=== PATIENT | male | born 1960 | race Caucasian/White ===

== ENCOUNTER 2018-05-22 23:09 | Emergency (ER) | payer MEDICARE ==
[2018-05-22] MEDS ORDERED: KETOROLAC TROMETHAMINE INJ/PF 30 MG/1 ML SDV IV ONE (23:47)
[2018-05-22] MEDS ORDERED: ONDANSETRON HCL INJ/PF 4 MG/2 ML SDV IV ONE (23:47)
[2018-05-22] MEDS ORDERED: MORPHINE SULFATE 10 MG/ML INJ IV ONE (23:48)
[2018-05-22 23:53] LABS: ABSOLUTE EOSINOPHILS # (AUTO) 0.5 10^3/uL (0.0-0.6); ABSOLUTE LYMPHOCYTES (AUTO) 1.7 10^3/uL (0.5-4.7); ABSOLUTE MONOCYTES (AUTO) 0.8 10^3/uL (0.1-1.4); ABSOLUTE NEUT (AUTO) 7.4 10^3/uL (1.7-8.2); BASOPHILS % (AUTO) 0.3 % (0-2); EOSINOPHILS % (AUTO) 4.4 % (0-6); HEMATOCRIT 40.5 % (37.9-51.0); HEMOGLOBIN 13.7 g/dL (13.5-17.0); LYMPHOCYTES % (AUTO) 16.1 % (13-45); MEAN CORPUSCULAR HEMOGLOBIN 30.8 pg (27.0-33.4); MEAN CORPUSCULAR HGB CONC 33.7 g/dL (32.0-36.0); MEAN CORPUSCULAR VOLUME 91 fl (80-97); MONOCYTES % (AUTO) 7.8 % (3-13); PLATELET COUNT 199 10^3/uL (150-450); RED BLOOD COUNT 4.43 10^6/uL (4.35-5.55); RED CELL DISTRIBUTION WIDTH 13.7 % (11.5-14.0); SEGMENTED NEUTROPHILS % (AUTO) 71.4 % (42-78); TOTAL CELLS COUNTED % (AUTO) 100 %; WHITE BLOOD COUNT 10.3 10^3/uL (4.0-10.5)
[2018-05-23 00:01] LABS: ALANINE AMINOTRANSFERASE 47 U/L (21-72); ALBUMIN 3.6 g/dL (3.5-5.0); ALKALINE PHOSPHATASE 132 U/L (38-126); ANION GAP 9 (5-19); ASPARTATE AMINO TRANSFERASE 31 U/L (17-59); BILIRUBIN,DIRECT 0.2 mg/dL (0.0-0.4); BILIRUBIN,TOTAL 0.5 mg/dL (0.2-1.3); BLOOD UREA NITROGEN 19 mg/dL (7-20); CALCIUM 10.1 mg/dL (8.4-10.2); CARBON DIOXIDE 27 mmol/L (22-30); CHLORIDE 104 mmol/L (98-107); GLUCOSE 127 mg/dL (75-110); POTASSIUM 4.4 mmol/L (3.6-5.0); SODIUM 140.1 mmol/L (137-145); TOTAL PROTEIN 6.6 g/dL (6.3-8.2)
--- NOTE | 2018-05-23 00:37 | ER Document Report ---
ED GI/ - General Mode of Arrival: Ambulatory Information source: Patient <DUANE CARNES - Last Filed: 05/23/18 03:27> <SAMMIE BOURGEOIS - Last Filed: 05/23/18 03:34> - General Chief Complaint: Flank Pain Stated Complaint: FLANK PAIN Time Seen by Provider: 05/22/18 23:39 Notes: Patient is a 58 year old male with HTN, high cholesterol and borderline diabetes and a history of kidney stones and skin cancer presents to the emergency department complaining of right flank pain onset 2 days ago. Patient states the pain was worsening and constant. He states he took Hydrocodone around 1999 with no relief. He further states the pain is similar to his previous kidney stones. Patient also complains of hematuria and nose congestion. Patient denies vomiting, diarrhea or chest pain. (TRICE,TAMPRIYA) - Related Data Allergies/Adverse Reactions: No Known Allergies Allergy (Unverified 06/09/14 19:47) Past Medical History - General Information source: Patient - Social History Smoking Status: Unknown if Ever Smoked Family History: Reviewed & Not Pertinent Patient has suicidal ideation: No Patient has homicidal ideation: No - Past Medical History Cardiac Medical History: Reports: Hx Hypertension Endocrine Medical History: Reports: Other - Borderline diabetes Renal/ Medical History: Reports: Hx Kidney Stones Malignancy Medical History: Reports Hx Skin Cancer - States it has been removed. Musculoskeletal Medical History: Reports Hx Gout Psychiatric Medical History: Reports: Hx Depression Past Surgical History: Reports: Hx Genitourinary Surgery - lithrotripsy, Hx Kidney (Renal Surgery), Hx Urinary Tract Surgery - CYSTO-LASER TX FOR KIDNEY STONES - Immunizations Hx Diphtheria, Pertussis, Tetanus Vaccination: Yes <TRICESHEYPRIYA - Last Filed: 05/23/18 03:27> Review of Systems - Review of Systems Constitutional: No symptoms reported EENT: No symptoms reported Cardiovascular: No symptoms reported Respiratory: No symptoms reported Gastrointestinal: No symptoms reported Genitourinary: See HPI, Flank pain, Hematuria Male Genitourinary: No symptoms reported Musculoskeletal: No symptoms reported Skin: No symptoms reported Hematologic/Lymphatic: No symptoms reported Neurological/Psychological: No symptoms reported -: Yes All other systems reviewed and negative <DUANE CARNES - Last Filed: 05/23/18 03:27> Physical Exam - General General appearance: Appears well, Alert In distress: None - HEENT Head: Normocephalic, Atraumatic Eyes: Normal Conjunctiva: Normal Extraocular movements intact: Yes Pupils: PERRL Mucous membranes: Normal Neck: Normal - Respiratory Respiratory status: No respiratory distress Chest status: Nontender Breath sounds: Normal Chest palpation: Normal - Cardiovascular Rhythm: Regular Heart sounds: Normal auscultation Murmur: No Friction rub: No Gallop: None auscultated - Abdominal Inspection: Normal Distension: No distension Bowel sounds: Normal Tenderness: Tender - Right pelvic tenderness to palpation Organomegaly: No organomegaly - Back Back: CVA tenderness - Mild right > left tenderness to percussion - Extremities General upper extremity: Normal ROM General lower extremity: Normal ROM - Neurological Neuro grossly intact: Yes Cognition: Normal Orientation: AAOx4 Hodges Coma Scale Eye Opening: Spontaneous Hodges Coma Scale Verbal: Oriented Hodges Coma Scale Motor: Obeys Commands Hodges Coma Scale Total: 15 Speech: Normal - Psychological Associated symptoms: Normal affect, Normal mood - Skin Skin Temperature: Warm Skin Moisture: Dry Skin Color: Normal <DUANE CARNES - Last Filed: 05/23/18 03:27> - Vital signs Vitals: Temp 97.3 F 05/22/18 23:09 Course - Laboratory Result Diagrams: 05/22/18 23:40 05/22/18 23:40 - Consults Dr. Berumen Time consulted: 01:09 - Agreeable to transfer, states to call hospitalist. <DUANE CARNES - Last Filed: 05/23/18 03:27> - Laboratory Result Diagrams: 05/22/18 23:40 05/22/18 23:40 <SAMMIE BOURGEOIS - Last Filed: 05/23/18 03:34> - Re-evaluation Re-evalutation: 05/23/18 01:00 CT scan shows bilateral obstructive kidney stones within mid ureter with moderate to severe hydroureter and hydronephrosis. Contacted [facility] transfer ramah. 05/23/18 01:09 Nurse recorded a temperature of 97. Dr. Zafar Berumen, urologist at [facility], is agreeable to transfer and states to call Hospitalist to admit to medicine. Hospitalist disagrees with admission to their floor and believes it should be a urologist admission. States they are going to call urologist. 05/23/18 02:14 Dr. Berumen admits patient to his service. (DUANE CARNES) 05/23/18 03:50 Patient is a 58-year-old male who presents with flank pain. CT is showing bilateral ureteral stones with bilateral hydronephrosis. There is also some perinephric stranding on the left concerning for possible Raji. Patient does have WBCs in urine. Blood cultures and urine cultures are sent. Rocephin was given. [facility] was contacted to transfer patient for urology services as none are available at this hospital today. Spoke with Dr. Berumen who will accept patient in transfer. Patient is agreeable to this plan and grateful for care. He is stable at the time of transfer. Of note, BUN and creatinine within normal limits at this time. (SAMMIE BOURGEOIS) - Vital Signs Vital signs: Temp Pulse Resp BP Pulse Ox 97.5 F 55 L 179/86 H 98 05/23/18 00:57 05/22/18 23:21 05/22/18 23:21 05/22/18 23:21 - Laboratory Laboratory results interpreted by me: 05/22/18 05/23/18 23:40 00:30 Glucose 127 H Alkaline Phosphatase 132 H Urine Protein 100 H Urine Glucose (UA) 50 H Urine Blood LARGE H Ur Leukocyte Esterase SMALL H Critical Care Note - Critical Care Note Total time excluding time spent on procedures (mins): 45 - Evaluation and management of flank pain, concern for obstructive uropathy, consultation with specialist, coordination of transfer, counseling of patient and family <SAMMIE BOURGEOIS - Last Filed: 05/23/18 03:34> Discharge <DUANE CARNES - Last Filed: 05/23/18 03:27> <SAMMIE BOURGEOIS - Last Filed: 05/23/18 03:34> - Discharge Clinical Impression: Bilateral ureteral calculi, Bilateral hydronephrosis, Possible pyelonephritis Condition: Stable Disposition: [facility] Scribe Attestation: 05/23/18 03:50 I personally performed the services described in the documentation, reviewed and edited the documentation which was dictated to the scribe in my presence, and it accurately records my words and actions. (SAMMIE BOURGEOIS) Scribe Documentation - Scribe Written by Zoë:: Zoë Barroso, 05/23/2018 00:43 acting as scribe for :: Julien <DUANE CARNES - Last Filed: 05/23/18 03:27>
--- NOTE | 2018-05-23 00:53 | RADIOLOGY REPORT (SQ) ---
EXAM DESCRIPTION: CT ABDOMEN WITHOUT IV CONTRAST COMPLETED DATE/TME: 05/23/2018 00:00 CLINICAL HISTORY: 58 years, Male, R flank pain, nausea COMPARISON: None. TECHNIQUE: Axial CT images of the abdomen and pelvis were obtained without contrast. Sagittal and coronal reformats were performed. [facility] 808 Images stored on PACS. All CT scanners at this facility use dose modulation, iterative reconstruction, and/or weight based dosing when appropriate to reduce radiation dose to as low as reasonably achievable (ALARA). [facility]: Dose Right [facility]: CareDose [facility]: Dose Right [facility]: Teradose 4D [facility]: [employer] LIMITATIONS: None. FINDINGS: The lung bases are clear. The liver, gallbladder, pancreas, spleen, and adrenal glands are unremarkable. There is a 0.5 x 0.4 cm stone within the mid right ureter causing moderate to severe hydroureter and hydronephrosis. There is is an additional 3 mm stone within the midpole of the right kidney. There is a 1.5 cm cyst within the right kidney. There is mild stranding along the right kidney and right ureter. There is a 0.7 x 0.9 cm stone within the mid left ureter. There are additional stones proximal to this stone which measure up to 0.7 cm in size. There is moderate to severe left-sided hydroureter and hydronephrosis. There is a 2.7 cm cyst within the left kidney. There are six stones within the urinary bladder with the largest stone measuring 2.2 x 2.1 cm. The smallest stone measures 1.2 x 1.0 cm. There is no intraperitoneal free air or fluid. There is no lymphadenopathy. There are are atherosclerotic calcifications of the abdominal aorta. The stomach, small bowel, and appendix are unremarkable. Diverticulosis is noted without evidence of diverticulitis. The prostate gland measures 6.6 x 5.8 cm. There are no lytic or blastic bone lesions IMPRESSION: 0.5 x 0.4 cm stone within the mid right ureter causing moderate to severe hydroureter and hydronephrosis. Additional 3 mm stone within the midpole the right kidney. Mild stranding around the right kidney and right ureter. A superimposed infection may be present. 0.7 x 0.9 cm stone within the mid left ureter with additional stones proximal that measure up to 0.7 cm. Moderate to severe left-sided hydroureter and hydronephrosis. Multiple stones within the urinary bladder which measure up to 2.2 x 2.1 cm. TECHNICAL DOCUMENTATION: Quality ID # [id number]: Final reports with documentation of one or more dose reduction techniques (e.g., Automated exposure control, adjustment of the mA and/or kV according to patient size, use of iterative reconstruction technique) 2010 [employer]- All Rights Reserved
[2018-05-23 00:54] LABS: APPEARANCE,URINE SLIGHTLY-CLOUDY; BILIRUBIN,URINE NEGATIVE (NEGATIVE); COLOR,URINE YELLOW; GLUCOSE, URINE 50 mg/dL (NEGATIVE); KETONES,URINE NEGATIVE (NEGATIVE); LEUKOCYTE ESTERASE,URINE SMALL (NEGATIVE); NITRITE,URINE NEGATIVE (NEGATIVE); PROTEIN,URINE 100 mg/dL (NEGATIVE); URINE SPECIFIC GRAVITY 1.015; UROBILINOGEN,URINE NEGATIVE mg/dL (<2.0)
[2018-05-23] MEDS ORDERED: CEFTRIAXONE 1 GM/D5W RTU 1 GM/50 ML RTUPB IV ONE (00:59)
[2018-05-23] MEDS ORDERED: CEFTRIAXONE INJ 1000 MG VIAL ONE (01:23)
[2018-05-23] MEDS ORDERED: MORPHINE SULFATE 10 MG/ML INJ IV ONE (02:59)
[2018-05-23 03:51] VITALS: BP 147/85
== END 2018-05-23 04:10 | disposition short-term general hospital (02) ==
LOC: ER 23:09
DX: N13.2 Hydronephrosis with renal and ureteral calculous obstruction (principal); R10.9 Unspecified abdominal pain; R31.9 Hematuria, unspecified; I10 Essential (primary) hypertension; E78.00 Pure hypercholesterolemia, unspecified; Z87.442 Personal history of urinary calculi
CPT/HCPCS: 96376; 99291; 96374; 96375; 36415; 87040; 87086; 85025; 87077; 80053; 81001; 76380; J1885; J2270; J0696; J2405

== ENCOUNTER 2018-08-06 19:02 | Emergency (ER) | payer MEDICARE ==
[2018-08-06] MEDS ORDERED: HYDROMORPHONE HCL INJ/PF 2 MG/ML AMPULE IV ONE (20:00)
[2018-08-06] MEDS ORDERED: ONDANSETRON HCL INJ/PF 4 MG/2 ML SDV IV ONE (20:00)
--- NOTE | 2018-08-06 20:23 | ER Document Report ---
ED Medical Screen (RME) - General Chief Complaint: Possible Kidney Stone Stated Complaint: FLANK PAIN Time Seen by Provider: 08/06/18 19:58 Mode of Arrival: Ambulatory Information source: Patient Notes: 58-year-old male presents with complaint of flank pain for 4 months. Patient was seen here and transferred to [facility] where he underwent a lithotripsy, stent placement. Patient reporting worsening of pain. He was seen at [facility] and discharged home. Daughter reports a decline in function, appetite. I have greeted and performed a rapid initial assessment of this patient. A comprehensive ED assessment and evaluation of the patient, analysis of test results and completion of medical decision making process we will be contacted by additional ED providers. PHYSICAL EXAMINATION: Vital signs reviewed-within normal limits GENERAL: Ill-appearing, mild distress LUNGS: No respiratory distress Musculoskeletal: Normal range of motion NEUROLOGICAL: Normal speech, normal gait. PSYCH: Normal mood, normal affect. SKIN: Warm, Dry, normal turgor, no rashes or lesions noted. TRAVEL OUTSIDE OF THE [place] IN LAST 30 DAYS: No - HPI Onset: Other Onset/Duration: Worse Quality of pain: Stabbing Associated Symptoms: Nausea Exacerbated by: Movement Relieved by: Denies Similar symptoms previously: Yes Recently seen / treated by doctor: Yes - Related Data Smoking: Non-smoker Frequency of alcohol use: None Drug Abuse: None Allergies/Adverse Reactions: No Known Allergies Allergy (Unverified 06/09/14 19:47) Past Medical History - Past Medical History Cardiac Medical History: Reports: Hx Hypertension Renal/ Medical History: Reports: Hx Kidney Stones. Denies: Hx Peritoneal Dialysis Malignancy Medical History: Reports Hx Skin Cancer - States it has been removed. Musculoskeltal Medical History: Reports Hx Gout Psychiatric Medical History: Reports: Hx Depression Past Surgical History: Reports: Hx Genitourinary Surgery - lithrotripsy, Hx Kidney (Renal Surgery), Hx Urinary Tract Surgery - CYSTO-LASER TX FOR KIDNEY STONES - Immunizations Hx Diphtheria, Pertussis, Tetanus Vaccination: Yes Physical Exam - Vital signs Vitals: Temp Pulse Resp BP Pulse Ox 98.1 F 77 20 120/79 99 08/06/18 19:28 08/06/18 19:28 08/06/18 19:28 08/06/18 19:28 08/06/18 19:28 Course - Vital Signs Vital signs: Temp Pulse Resp BP Pulse Ox 98.1 F 77 20 120/79 99 08/06/18 19:28 08/06/18 19:28 08/06/18 19:28 08/06/18 19:28 08/06/18 19:28
[2018-08-06 21:20] LABS: HEMATOCRIT 38.8 % (37.9-51.0); HEMOGLOBIN 12.9 g/dL (13.5-17.0); MEAN CORPUSCULAR HEMOGLOBIN 29.3 pg (27.0-33.4); MEAN CORPUSCULAR HGB CONC 33.4 g/dL (32.0-36.0); MEAN CORPUSCULAR VOLUME 88 fl (80-97); PLATELET COUNT 341 10^3/uL (150-450); RED BLOOD COUNT 4.41 10^6/uL (4.35-5.55); RED CELL DISTRIBUTION WIDTH 16.3 % (11.5-14.0)
[2018-08-06 21:33] LABS: ALANINE AMINOTRANSFERASE 33 U/L (21-72); ALKALINE PHOSPHATASE 151 U/L (38-126); ANION GAP 19 (5-19); ASPARTATE AMINO TRANSFERASE 40 U/L (17-59); BILIRUBIN,DIRECT 1.8 mg/dL (0.0-0.4); CALCIUM 10.4 mg/dL (8.4-10.2); CARBON DIOXIDE 18 mmol/L (22-30); CHLORIDE 95 mmol/L (98-107); GLUCOSE 198 mg/dL (75-110); POTASSIUM 4.8 mmol/L (3.6-5.0); SODIUM 131.9 mmol/L (137-145); TOTAL PROTEIN 7.7 g/dL (6.3-8.2)
[2018-08-06 21:36] LABS: ABSOLUTE LYMPHOCYTES# (MANUAL) 0.8 10^3/uL (0.5-4.7); ABSOLUTE MONOCYTES # (MANUAL) 1.3 10^3/uL (0.1-1.4); ABSOLUTE NEUTROPHILS# (MANUAL) 23.9 10^3/uL (1.7-8.2); BAND NEUTROPHILS % (MANUAL) 1 % (3-5); BASOPHILS % (MANUAL) 0 % (0-2); EOSINOPHILS % (MANUAL) 0 % (0-6); LYMPHOCYTES % (MANUAL) 3 % (13-45); MONOCYTES % (MANUAL) 5 % (3-13); SEGMENTED NEUTROPHILS % (MAN) 91 % (42-78); TOTAL CELLS COUNTED 100
[2018-08-06 21:39] LABS: ANISOCYTOSIS 1+; PLATELET COMMENT ADEQUATE; PLATELET LARGE PRESENT; TOXIC GRANULATION SLIGHT; TOXIC VACUOLATION PRESENT
[2018-08-06 21:40] LABS: BLOOD UREA NITROGEN 188 mg/dL (7-20)
[2018-08-06 21:44] LABS: APPEARANCE,URINE TURBID; BILIRUBIN,URINE NEGATIVE (NEGATIVE); COLOR,URINE AMBER; GLUCOSE, URINE NEGATIVE (NEGATIVE); KETONES,URINE NEGATIVE (NEGATIVE); LEUKOCYTE ESTERASE,URINE LARGE (NEGATIVE); NITRITE,URINE NEGATIVE (NEGATIVE); PROTEIN,URINE 100 mg/dL (NEGATIVE); URINE SPECIFIC GRAVITY 1.012; UROBILINOGEN,URINE NEGATIVE mg/dL (<2.0)
[2018-08-06] MEDS ORDERED: CEFTRIAXONE INJ 1000 MG VIAL IV ONE (21:50)
[2018-08-06] MEDS ORDERED: NORMAL SALINE 1000 ML 1,000 ML IV ONE (21:50)
--- NOTE | 2018-08-06 22:03 | ER Document Report ---
ED GI/ <JS KINNEY - Last Filed: 08/07/18 12:22> <GEMMAORQUIDEALOIDA - Last Filed: 08/08/18 18:29> - General Mode of Arrival: Ambulatory TRAVEL OUTSIDE OF THE [place] IN LAST 30 DAYS: No <CHIARA MAE - Last Filed: 08/08/18 20:24> - General Chief Complaint: Possible Kidney Stone Stated Complaint: FLANK PAIN Time Seen by Provider: 08/06/18 19:58 Notes: Patient is a 58-year-old male that comes to the emergency department for chief complaint of vomiting, inability to eat, abdominal pain, flank pain. Patient diagnosed with multiple kidney stones, states that he had laser removal of the kidney stones on one side, was due for laser removal of the other kidney stones on the other side on August 21 with [facility]. Daughter states that for the past 4-5 days patient has been progressively worse, he was evaluated yesterday at [facility] after he was running a fever per family, he was given a dose of IM antibiotics, placed on Ceftin ear and sent home with Zofran and oxycodone. Patient states that despite nausea and pain medication every time he tries to eat or drink he vomits. In addition to this patient had a Torres catheter removed 4 days ago, he states he can urinate since that time although he admits he can only urinate minimally. Patient also states that he has become so weak over the past day that he can barely walk. (HCIARA MAE) - Related Data Allergies/Adverse Reactions: No Known Allergies Allergy (Unverified 06/09/14 19:47) Past Medical History - General Information source: Patient - Social History Smoking Status: Never Smoker Frequency of alcohol use: None Drug Abuse: None Lives with: Family Family History: Reviewed & Not Pertinent Patient has suicidal ideation: No Patient has homicidal ideation: No - Past Medical History Cardiac Medical History: Reports: Hx Hypertension Renal/ Medical History: Reports: Hx Kidney Stones. Denies: Hx Peritoneal Dialysis Malignancy Medical History: Reports Hx Skin Cancer - States it has been removed. Musculoskeletal Medical History: Reports Hx Gout Psychiatric Medical History: Reports: Hx Depression Past Surgical History: Reports: Hx Genitourinary Surgery - lithrotripsy, Hx Kidney (Renal Surgery), Hx Urinary Tract Surgery - CYSTO-LASER TX FOR KIDNEY STONES - Immunizations Hx Diphtheria, Pertussis, Tetanus Vaccination: Yes <CHIARA MAE - Last Filed: 08/08/18 20:24> Review of Systems - Review of Systems Constitutional: See HPI EENT: No symptoms reported Cardiovascular: No symptoms reported Respiratory: No symptoms reported Gastrointestinal: See HPI Genitourinary: See HPI Male Genitourinary: No symptoms reported Musculoskeletal: No symptoms reported Skin: No symptoms reported Hematologic/Lymphatic: No symptoms reported Neurological/Psychological: No symptoms reported <CHIARA MAE - Last Filed: 08/08/18 20:24> Physical Exam <JS KINNEY - Last Filed: 08/07/18 12:22> <LOIDA LEARY - Last Filed: 08/08/18 18:29> <CHIARA MAE - Last Filed: 08/08/18 20:24> - Vital signs Vitals: Temp Pulse Resp BP Pulse Ox 98.1 F 77 20 120/79 99 08/06/18 19:28 08/06/18 19:28 08/06/18 19:28 08/06/18 19:28 08/06/18 19:28 - Notes Notes: GENERAL: Patient ill-appearing, appears to be in pain, lying grimacing on the bed with his eyes shut HEAD: Normocephalic, atraumatic. EYES: Pupils equal, round, and reactive to light. Extraocular movements intact. ENT: Oral mucosa very dry, tongue midline, unremarkable oropharyngeal exam NECK: Full range of motion. Supple. Trachea midline. LUNGS: Clear to auscultation bilaterally, no wheezes, rales, or rhonchi. No respiratory distress. HEART: Regular rate and rhythm. No murmur ABDOMEN: Very tender in the mid to lower abdomen, some distention, no rigidity. There is also tenderness in the upper abdomen generally. EXTREMITIES: Moves all 4 extremities spontaneously. No edema, normal radial and dorsalis pedis pulses bilaterally. No cyanosis. BACK: Mild bilateral CVA tenderness, otherwise unremarkable back exam NEUROLOGICAL: Alert and oriented x3. Normal speech. [cranial nerves II through XII grossly intact]. SKIN: Warm, dry, normal turgor. No rashes or lesions noted. (CHIARA MAE) Course - Laboratory Result Diagrams: 08/07/18 06:50 08/07/18 06:50 <JS KINNEY - Last Filed: 08/07/18 12:22> - Laboratory Result Diagrams: 08/08/18 08:25 08/08/18 08:25 <GEMMAORQUIDEALOIDA - Last Filed: 08/08/18 18:29> - Laboratory Result Diagrams: 08/08/18 08:25 08/08/18 08:25 <CHIARA MAE - Last Filed: 08/08/18 20:24> - Re-evaluation Re-evalutation: 08/07/18 12:22 Patient complaining of discomfort around the insertion site of his Torres catheter, viscous lidocaine will be ordered and applied. Patient denies any other complaints. Continue to await bed assignment. (JS KINNEY) 08/08/18 07:12 Assumed care of the patient at the bedside. He is feeling better. He is drinking some Gatorade. Urine culture is pending. Urinary catheter is draining. I ordered another CBC, comprehensive chemistry, and lipase to recheck his labs. [facility] transfer center said to call back at 9 AM and they will no better for bed placement. 08/08/18 09:06 [facility] does not know when any beds will be available. Pt drinking gatorade. vitals stable. 08/08/18 09:06 08/08/18 09:10 pt wants me to call his son barbie curtis [phone] about possible transfer to a different hospital, his urologist is at [facility]. Then call [facility] , he wants them to make decision about where he is transferred to. I am trying to find out other arrangements because [facility] does not know when they will have a bed available. 08/08/18 09:[address] mcqueen as supervisory for this pt pending transfer, wants protable cxr, reviewed labs, change IV fluid to 1/2 NS at 150/hr, will increase if chest xray OK> will call [facility] back. 08/08/18 09:23 08/08/18 10:03 The patient and his son Mahamed said to try [facility] for transfer. They are not accepting except for STEMI's, subarachnoid bleeds, NICU and high risk pregnancies. The patient and son Mahamed then said to try [facility] again. 08/08/18 10:34 call to [facility] had to leave transfer line message. cxr negative. 08/08/18 11:30 spoke with nursing building services supervisor at [facility] and the senior program analyst will call me back. 08/08/18 14:55 dr. sexton at [facility] Hospitalist will accept the pt the the IMCU at [facility], urology is already aware of the pt, as dr. GARCIA that I spoke with an hour ago (senior program analyst) said that he does not need ICU> 08/08/18 14:57 08/08/18 18:29 pt feels OK, vitals stable, will be going to [facility] via [facility] at 2030. EMTALA form has been updated to the new facility and accepting physisician (LOIDA LEARY) Patient ill-appearing, weak, dry parched mucous membranes. Severe abdominal tenderness throughout, generalized flank tenderness. Quick scan of the bladder shows a very full bladder on ultrasound at bedside. Given Dilaudid and Zofran. I placed a Torres catheter. Approximately 1500 cc of urine quickly drained out , has a purulent component as well. CBC shows leukocytosis of 26,000 with left shift. Chemistry shows acute renal failure with creatinine of 6.92 and GFR of 8, previous creatinine was 1.2 in May. Urine shows urinary tract infection, culture placed. Patient has been started on Rocephin, given IV fluids. On re-evaluation, patient is calm, smiling, states he feels much improved. Vital signs unchanged. Discussed with family at bedside, we do not have urology or nephrology coverage , patient is in acute renal failure from probably obstructive uropathy, pyelonephritis, recommend transfer back to [facility]. Discussed with Dr. Conde. Family declines, they state that he has been seen there four times very recently and they request to be sent to [facility] instead. They understand the need for transfer to tertiary care however they prefer [facility]. 08/06/18 23:[address] Price, hospitalist at [facility], he requests I speak to Urology first. CT images completed, patient appears to have bilateral stents in place, hydronephrosis. Still pending report. I spoke with Dr. Roman, urology region manager, discussed patient, workup. He states that he will be happy to consult on the patient, recommends patient be accepted by internal medicine with urology/nephrology consultation. Transfer center called and informed me that Dr. Price has accepted the patient in transfer. There may be a bit delayed. I discussed these details with family, they are very satisfied with this. 08/07/18 02:00 Patient still asymptomatic states he feels so much better than before. He has had IV fluids infusing, has completed antibiotics. Does not require additional pain management at this time. Still in bed delay, labs will be trended. 08/07/18 06:30 Patient reporting he is having some abdominal pains in the general abdomen, no severe pain, no vomiting. He will be medicated. No significant change otherwise. 08/07/18 07:10 Patient introduced to Js THOMPSON at bedside, no current complaints. No significant change in vital signs. 08/07/18 19:45 Discussed with patient at length at bedside. He states he feels much better than yesterday, he does not have any nausea, but is a little bit uncomfortable but otherwise he has no complaints. I discussed the fact that we did not have a bed yet for transfer to [facility], discussed possible transfer to our facility, he declines, states he wants to go to [facility]. Cycled labs did show some improvement, these will be cycled again because of the delay, patient receiving additional Rocephin, cultures still pending. Discussed with Dr. Conde. 08/07/18 21:17 Patient is on a hospital bed now, reports he is much more comfortable. Discussed with and daughter as well, declined going to [place] or other location than [facility]. Will continue to monitor. 08/08/18 07:10 Patient introduced to Loida THOMPSON at bedside. No current complaints. 08/08/18 20:20 Transport team is here. Patient mildly hypertensive, states he is having some pain, has no had any pain medication today. Will medicate. No other complaints. Stable for transport. (CHIARA MAE) - Vital Signs Vital signs: Temp Pulse Resp BP Pulse Ox 97.3 F 77 19 187/84 H 96 08/08/18 19:57 08/06/18 23:00 08/08/18 19:05 08/08/18 19:05 08/08/18 19:00 - Laboratory Laboratory results interpreted by me: 08/06/18 08/06/18 08/06/18 21:00 21:00 21:00 WBC 26.0 H RBC Hgb 12.9 L Hct RDW 16.3 H Seg Neuts % (Manual) 91 H Band Neutrophils % 1 L Lymphocytes % (Manual) 3 L Abs Neuts (Manual) 23.9 H Abs Lymphs (Manual) Abs Monocytes (Manual) Sodium 131.9 L Chloride 95 L Carbon Dioxide 18 L BUN 188 H Creatinine 6.92 H Est GFR ( Amer) 10 L Est GFR (Non-Af Amer) 8 L Glucose 198 H Calcium 10.4 H Total Bilirubin 2.0 H Direct Bilirubin 1.8 H Alkaline Phosphatase 151 H Albumin 3.0 L Lipase 7014.9 H Urine Protein Urine Blood Ur Leukocyte Esterase 08/06/18 08/07/18 08/07/18 21:22 06:50 06:50 WBC 18.9 H RBC Hgb 12.9 L Hct RDW 16.3 H Seg Neuts % (Manual) 85 H Band Neutrophils % Lymphocytes % (Manual) 6 L Abs Neuts (Manual) 16.1 H Abs Lymphs (Manual) Abs Monocytes (Manual) 1.7 H Sodium Chloride Carbon Dioxide 21 L BUN 171 H Creatinine 6.25 H Est GFR ( Amer) 11 L Est GFR (Non-Af Amer) 9 L Glucose 165 H Calcium Total Bilirubin 1.4 H Direct Bilirubin 1.3 H Alkaline Phosphatase Albumin 2.6 L Lipase Urine Protein 100 H Urine Blood MODERATE H Ur Leukocyte Esterase LARGE H 08/07/18 08/07/18 08/08/18 22:00 22:00 08:25 WBC 18.4 H 18.8 H RBC 4.11 L 4.25 L Hgb 12.2 L 12.6 L Hct 36.5 L RDW 16.3 H 16.6 H Seg Neuts % (Manual) 90 H 90 H Band Neutrophils % Lymphocytes % (Manual) 5 L 2 L Abs Neuts (Manual) 16.6 H 16.9 H Abs Lymphs (Manual) 0.4 L Abs Monocytes (Manual) 1.5 H Sodium Chloride 113 H Carbon Dioxide BUN 146 H D Creatinine 4.23 H Est GFR ( Amer) 18 L Est GFR (Non-Af Amer) 15 L Glucose 140 H Calcium Total Bilirubin Direct Bilirubin Alkaline Phosphatase Albumin Lipase 1684.4 H Urine Protein Urine Blood Ur Leukocyte Esterase 08/08/18 08:25 WBC RBC Hgb Hct RDW Seg Neuts % (Manual) Band Neutrophils % Lymphocytes % (Manual) Abs Neuts (Manual) Abs Lymphs (Manual) Abs Monocytes (Manual) Sodium 148.0 H Chloride 116 H Carbon Dioxide 21 L BUN 127 H Creatinine 3.06 H Est GFR ( Amer) 26 L Est GFR (Non-Af Amer) 21 L Glucose 232 H Calcium Total Bilirubin 1.9 H Direct Bilirubin 1.5 H Alkaline Phosphatase Albumin 2.5 L Lipase 1813.7 H Urine Protein Urine Blood Ur Leukocyte Esterase Discharge <JS KINNEY - Last Filed: 08/07/18 12:22> <LOIDA LEARY - Last Filed: 08/08/18 18:29> <CHIARA MAE - Last Filed: 08/08/18 20:24> - Discharge Clinical Impression: Obstructive uropathy Acute renal failure Qualifiers: Acute renal failure type: unspecified Qualified Code(s): N17.9 - Acute kidney failure, unspecified Urinary tract infection Qualifiers: Urinary tract infection type: site unspecified Hematuria presence: without hematuria Qualified Code(s): N39.0 - Urinary tract infection, site not specified Condition: Fair Disposition: [facility] Referrals: SHYAM BRAVO JR, DO [Primary Care Provider] - Follow up as needed
[2018-08-06] MEDS ORDERED: LIDOCAINE 2% URO-JET 5 ML KIT MM ONE (22:16)
--- NOTE | 2018-08-06 23:33 | RADIOLOGY REPORT (SQ) ---
EXAM DESCRIPTION: CT ABDOMEN WITHOUT IV CONTRAST COMPLETED DATE/TME: 08/06/2018 22:41 CLINICAL HISTORY: UTI, kidney stones, renal failure COMPARISON: 05/23/2018 TECHNIQUE: CT of the abdomen and pelvis without IV contrast. Evaluation of the solid organs and vasculature is suboptimal due to lack of IV contrast. DLP: 695.68 mGy-cm FINDINGS: Lung Bases: Mild dependent atelectasis. Bones: No destructive bone lesions identified. Degenerative change of the spine. Abdomen: Liver: The liver has normal size and decreased density. Gallbladder: No calcified gallstones. Spleen, Pancreas, and Adrenal Glands: The spleen and adrenal glands are unremarkable. Mild perihepatic inflammatory change as well as inflammatory change adjacent to the third portion of the duodenum and throughout the retroperitoneum. Kidneys: Moderate left hydronephrosis. The proximal loop of the left double-J ureteral stent is migrated into the region of the left UPJ. Right double-J ureteral stent in place with mild right hydronephrosis. The distal loops of the double-J ureteral stents. The in place in the urinary bladder. Nonobstructing right nephrolithiasis. No large exophytic solid renal masses. Vasculature: Aortoiliac atherosclerosis. IVC is unremarkable. Stomach: The stomach is nondistended. Other: No free intraperitoneal air. No free fluid or lymphadenopathy. Pelvis: Bladder: Torres catheter in the urinary bladder. Bowel: Scattered diverticula of the colon. No pericolic inflammatory change. No dilated loops of large or small bowel. Appendix: Normal appendix. Pelvis: Enlarged prostate. IMPRESSION: 1. Mild peripancreatic and retroperitoneal inflammatory change. These findings could be seen with acute pancreatitis. Correlation with serum lipase recommended. If serum lipase is normal these findings could be related to duodenitis. 2. Moderate left hydronephrosis. The proximal loop of the left double-J ureteral stent has migrated into the region of the left UVJ. Correlation for stent function recommended. 3. Right double-J ureteral stent in appropriate position with mild right hydronephrosis. 4. Nonobstructing punctate right nephrolithiasis. 5. Hepatic steatosis. 6. Diverticulosis without evidence of acute diverticulitis. 7. Enlarged prostate. This exam was performed according to our departmental dose-optimization program, which includes automated exposure control, adjustment of the mA and/or kV according to patient size and/or use of iterative reconstruction technique.
[2018-08-07] MEDS ORDERED: LIDOCAINE 2% URO-JET 5 ML KIT MM ONE (01:18)
[2018-08-07] MEDS: NORMAL SALINE 1000 ML 1,000 ML IV PRN ×3 (01:34→19:22)
[2018-08-07] MEDS ORDERED: MORPHINE SULFATE 10 MG/ML INJ IV ONE ×2 (06:32→19:03)
[2018-08-07] MEDS ORDERED: ONDANSETRON HCL INJ/PF 4 MG/2 ML SDV IV ONE ×2 (06:33→19:03)
[2018-08-07 07:09] LABS: HEMATOCRIT 38.6 % (37.9-51.0); HEMOGLOBIN 12.9 g/dL (13.5-17.0); MEAN CORPUSCULAR HEMOGLOBIN 29.4 pg (27.0-33.4); MEAN CORPUSCULAR HGB CONC 33.5 g/dL (32.0-36.0); MEAN CORPUSCULAR VOLUME 88 fl (80-97); PLATELET COUNT 327 10^3/uL (150-450); RED CELL DISTRIBUTION WIDTH 16.3 % (11.5-14.0); WHITE BLOOD COUNT 18.9 10^3/uL (4.0-10.5)
[2018-08-07 07:29] LABS: ABSOLUTE LYMPHOCYTES# (MANUAL) 1.1 10^3/uL (0.5-4.7); ABSOLUTE MONOCYTES # (MANUAL) 1.7 10^3/uL (0.1-1.4); ABSOLUTE NEUTROPHILS# (MANUAL) 16.1 10^3/uL (1.7-8.2); BASOPHILS % (MANUAL) 0 % (0-2); EOSINOPHILS % (MANUAL) 0 % (0-6); LYMPHOCYTES % (MANUAL) 6 % (13-45); MONOCYTES % (MANUAL) 9 % (3-13); SEGMENTED NEUTROPHILS % (MAN) 85 % (42-78); TOTAL CELLS COUNTED 100
[2018-08-07 07:30] LABS: ANISOCYTOSIS SLIGHT; PLATELET CLUMPS PRESENT; PLATELET COMMENT ADEQUATE
[2018-08-07 07:31] LABS: ALANINE AMINOTRANSFERASE 36 U/L (21-72); ALBUMIN 2.6 g/dL (3.5-5.0); ALKALINE PHOSPHATASE 126 U/L (38-126); ANION GAP 14 (5-19); ASPARTATE AMINO TRANSFERASE 33 U/L (17-59); BILIRUBIN,DIRECT 1.3 mg/dL (0.0-0.4); BILIRUBIN,TOTAL 1.4 mg/dL (0.2-1.3); CALCIUM 9.7 mg/dL (8.4-10.2); CARBON DIOXIDE 21 mmol/L (22-30); CHLORIDE 103 mmol/L (98-107); GLUCOSE 165 mg/dL (75-110); POTASSIUM 4.4 mmol/L (3.6-5.0); SODIUM 138.1 mmol/L (137-145); TOTAL PROTEIN 6.6 g/dL (6.3-8.2)
[2018-08-07 07:43] LABS: BLOOD UREA NITROGEN 171 mg/dL (7-20)
[2018-08-07] MEDS ORDERED: LIDOCAINE 2% VISCOUS SOLN 20 ML UDCUP PO ONE (12:21)
[2018-08-07] MEDS ORDERED: CEFTRIAXONE INJ 1000 MG VIAL IV ONE (19:02)
[2018-08-07 22:16] LABS: HEMATOCRIT 36.5 % (37.9-51.0); HEMOGLOBIN 12.2 g/dL (13.5-17.0); MEAN CORPUSCULAR HEMOGLOBIN 29.7 pg (27.0-33.4); MEAN CORPUSCULAR HGB CONC 33.5 g/dL (32.0-36.0); MEAN CORPUSCULAR VOLUME 89 fl (80-97); PLATELET COUNT 378 10^3/uL (150-450); RED BLOOD COUNT 4.11 10^6/uL (4.35-5.55); RED CELL DISTRIBUTION WIDTH 16.3 % (11.5-14.0); WHITE BLOOD COUNT 18.4 10^3/uL (4.0-10.5)
[2018-08-07 22:31] LABS: ABSOLUTE LYMPHOCYTES# (MANUAL) 1.1 10^3/uL (0.5-4.7); ABSOLUTE MONOCYTES # (MANUAL) 0.7 10^3/uL (0.1-1.4); ABSOLUTE NEUTROPHILS# (MANUAL) 16.6 10^3/uL (1.7-8.2); BASOPHILS % (MANUAL) 0 % (0-2); EOSINOPHILS % (MANUAL) 0 % (0-6); LYMPHOCYTES % (MANUAL) 5 % (13-45); MONOCYTES % (MANUAL) 4 % (3-13); SEGMENTED NEUTROPHILS % (MAN) 90 % (42-78); TOTAL CELLS COUNTED 100
[2018-08-07 22:32] LABS: PLATELET COMMENT ADEQUATE; TOXIC GRANULATION SLIGHT
[2018-08-07 22:33] LABS: ANISOCYTOSIS 1+
[2018-08-07 22:43] LABS: ANION GAP 6 (5-19); CALCIUM 9.6 mg/dL (8.4-10.2); CARBON DIOXIDE 23 mmol/L (22-30); CHLORIDE 113 mmol/L (98-107); GLUCOSE 140 mg/dL (75-110); LIPASE 1684.4 U/L (23-300); POTASSIUM 4.4 mmol/L (3.6-5.0)
[2018-08-07 22:51] LABS: BLOOD UREA NITROGEN 146 mg/dL (7-20)
[2018-08-08] MEDS: NORMAL SALINE 1000 ML 1,000 ML IV PRN (05:25)
[2018-08-08 08:40] LABS: HEMATOCRIT 37.9 % (37.9-51.0); HEMOGLOBIN 12.6 g/dL (13.5-17.0); MEAN CORPUSCULAR HEMOGLOBIN 29.5 pg (27.0-33.4); MEAN CORPUSCULAR HGB CONC 33.1 g/dL (32.0-36.0); MEAN CORPUSCULAR VOLUME 89 fl (80-97); PLATELET COUNT 439 10^3/uL (150-450); RED BLOOD COUNT 4.25 10^6/uL (4.35-5.55); RED CELL DISTRIBUTION WIDTH 16.6 % (11.5-14.0); WHITE BLOOD COUNT 18.8 10^3/uL (4.0-10.5)
[2018-08-08 08:51] LABS: ALANINE AMINOTRANSFERASE 33 U/L (21-72); ALBUMIN 2.5 g/dL (3.5-5.0); ALKALINE PHOSPHATASE 123 U/L (38-126); ANION GAP 11 (5-19); ASPARTATE AMINO TRANSFERASE 30 U/L (17-59); BILIRUBIN,DIRECT 1.5 mg/dL (0.0-0.4); BILIRUBIN,TOTAL 1.9 mg/dL (0.2-1.3); CALCIUM 9.9 mg/dL (8.4-10.2); CARBON DIOXIDE 21 mmol/L (22-30); CHLORIDE 116 mmol/L (98-107); GLUCOSE 232 mg/dL (75-110); LIPASE 1813.7 U/L (23-300); POTASSIUM 4.3 mmol/L (3.6-5.0); TOTAL PROTEIN 6.7 g/dL (6.3-8.2)
[2018-08-08 09:03] LABS: BLOOD UREA NITROGEN 127 mg/dL (7-20)
[2018-08-08 09:09] LABS: ABSOLUTE LYMPHOCYTES# (MANUAL) 0.4 10^3/uL (0.5-4.7); ABSOLUTE MONOCYTES # (MANUAL) 1.5 10^3/uL (0.1-1.4); ABSOLUTE NEUTROPHILS# (MANUAL) 16.9 10^3/uL (1.7-8.2); BASOPHILS % (MANUAL) 0 % (0-2); EOSINOPHILS % (MANUAL) 0 % (0-6); LYMPHOCYTES % (MANUAL) 2 % (13-45); MONOCYTES % (MANUAL) 8 % (3-13); SEGMENTED NEUTROPHILS % (MAN) 90 % (42-78); TOTAL CELLS COUNTED 100
[2018-08-08 09:10] LABS: ANISOCYTOSIS 1+; PLATELET COMMENT ADEQUATE; TOXIC GRANULATION SLIGHT
[2018-08-08] MEDS ORDERED: CEFTRIAXONE 1 GM/D5W RTU 1 GM/50 ML RTUPB IV SCH (10:00)
[2018-08-08] MEDS ORDERED: CEFTRIAXONE SODIUM 1,000 MG in DEXTROSE 5%-WATER 50 ML IV SCH (10:00)
--- NOTE | 2018-08-08 10:17 | RADIOLOGY REPORT (SQ) ---
EXAM DESCRIPTION: CHEST SINGLE VIEW COMPLETED DATE/TIME: 08/08/2018 9:35 am REASON FOR STUDY: chest COMPARISON: None. EXAM PARAMETERS: NUMBER OF VIEWS: One view. TECHNIQUE: Single frontal radiographic view of the chest acquired. RADIATION DOSE: NA LIMITATIONS: None. FINDINGS: LUNGS AND PLEURA: No opacities, masses or pneumothorax. No pleural effusion. MEDIASTINUM AND HILAR STRUCTURES: No masses. Contour normal. HEART AND VASCULAR STRUCTURES: Heart normal in size. Normal vasculature. BONES: No acute findings. HARDWARE: None in the chest. OTHER: No other significant finding. IMPRESSION: NO ACUTE RADIOGRAPHIC FINDING IN THE CHEST. TECHNICAL DOCUMENTATION: JOB ID: [id number] [employer]- All Rights Reserved Reading location - IP/workstation name: [email or web address]
[2018-08-08] MEDS: 1/2 NORMAL SALINE 1,000 ML IV PRN ×2 (10:27→19:56)
[2018-08-08] MEDS ORDERED: ONDANSETRON HCL INJ/PF 4 MG/2 ML SDV IV ONE (20:17)
[2018-08-08] MEDS ORDERED: MORPHINE SULFATE 10 MG/ML INJ IV ONE (20:17)
[2018-08-08 20:34] VITALS: BP 174/72
== END 2018-08-08 20:36 | disposition short-term general hospital (02) ==
LOC: ER 19:02
DX: N13.9 Obstructive and reflux uropathy, unspecified (principal); N17.9 Acute kidney failure, unspecified; N39.0 Urinary tract infection, site not specified; R10.9 Unspecified abdominal pain; R11.10 Vomiting, unspecified; I10 Essential (primary) hypertension; Z87.442 Personal history of urinary calculi; Z85.828 Personal history of other malignant neoplasm of skin
CPT/HCPCS: 96376; 99285; 96361; 51702; 96375; 96365; 96366; 36415; 87086; 83690; 85025; 87088; 80048; 80053; 81001; 87186; 71045; 76380; J3490; J2270 ×2; J1170; J0696 ×3; J2405 ×3; A9270 ×2

== ENCOUNTER 2018-09-14 00:15 | Emergency (ER) | payer MEDICARE ==
[2018-09-14 01:54] LABS: APPEARANCE,URINE CLOUDY; BILIRUBIN,URINE NEGATIVE (NEGATIVE); COLOR,URINE YELLOW; GLUCOSE, URINE 50 mg/dL (NEGATIVE); KETONES,URINE NEGATIVE (NEGATIVE); LEUKOCYTE ESTERASE,URINE LARGE (NEGATIVE); NITRITE,URINE POSITIVE (NEGATIVE); PROTEIN,URINE NEGATIVE (NEGATIVE); URINE SPECIFIC GRAVITY 1.008; UROBILINOGEN,URINE NEGATIVE mg/dL (<2.0)
--- NOTE | 2018-09-14 02:41 | ER Document Report ---
ED General - General Chief Complaint: Urinary Retention Stated Complaint: URINARY RETENTION Time Seen by Provider: 09/14/18 01:09 Notes: Patient is a 58-year-old male with pain in his bladder. He was seen at the beginning of August in the emergency department for urinary retention which he was transferred out to [facility]. Has been following up with [facility] urology and was told he was able to take his Torres catheter out yesterday afternoon. He proceeded to take his Torres catheter out, but is now having pain and feeling a sensation of not being able to void fully. He also feels some urgency. TRAVEL OUTSIDE OF THE [place] IN LAST 30 DAYS: No - Related Data Allergies/Adverse Reactions: No Known Allergies Allergy (Unverified 06/09/14 19:47) Past Medical History - General Information source: Patient - Social History Smoking Status: Never Smoker Frequency of alcohol use: None Drug Abuse: None Family History: Reviewed & Not Pertinent Patient has suicidal ideation: No Patient has homicidal ideation: No - Past Medical History Cardiac Medical History: Reports: Hx Hypertension Renal/ Medical History: Reports: Hx Kidney Stones. Denies: Hx Peritoneal Dialysis Malignancy Medical History: Reports Hx Skin Cancer - States it has been removed. Musculoskeletal Medical History: Reports Hx Gout Psychiatric Medical History: Reports: Hx Depression Past Surgical History: Reports: Hx Genitourinary Surgery - lithrotripsy, Hx Kidney (Renal Surgery), Hx Urinary Tract Surgery - CYSTO-LASER TX FOR KIDNEY STONES - Immunizations Hx Diphtheria, Pertussis, Tetanus Vaccination: Yes Review of Systems - Review of Systems Notes: REVIEW OF SYSTEMS: CONSTITUTIONAL : Denies recent illness. Denies recent unintentional weight loss. Denies fever, chills, or sweats. EENT: Denies eye, ear, throat, or mouth pain, discharge, or symptoms. Denies nasal or sinus congestion. CARDIOVASCULAR: Denies chest pain. RESPIRATORY: Denies shortness of breath, cough, congestion, difficulty breathing , or wheezing. GASTROINTESTINAL: Denies nausea, vomiting, and diarrhea. Denies abdominal pain. Denies constipation. Last BM: GENITOURINARY: See HPI MUSCULOSKELETAL: Denies neck and back pain. Denies joint pain or swelling. SKIN: Denies rash, itchiness, or lesions HEMATOLOGIC : Denies easy bruising or bleeding. LYMPHATIC: Denies swollen, painful, enlarged glands. NEUROLOGICAL: Denies no numbness or tingling denies weakness. Denies headache. Denies altered mental status. Denies alteration in speech. PSYCHIATRIC: Denies stress, anxiety, alteration in sleep patterns, or depression. All other systems reviewed and negative. Physical Exam - Vital signs Vitals: Temp Pulse Resp BP Pulse Ox 97.4 F 70 16 155/90 H 97 09/14/18 00:26 09/14/18 00:26 09/14/18 00:26 09/14/18 00:26 09/14/18 00:26 - Notes Notes: PHYSICAL EXAMINATION: GENERAL: Appears well, healthy, well-nourished, no acute distress. HEAD: Normocephalic, atraumatic. EYES: PERRL, conjunctiva normal, all extraocular movements intact, sclera nonicteric ENT: Moist mucous membranes. NECK: Supple, no noticeable swelling, redness, rash. Normal range of motion. LUNGS: Equal breath sounds bilaterally and clear to auscultation. No wheezes rales or rhonchi. CARDIOVASCULAR: S1-S2, regular rate, regular rhythm. Radial pulses 2+, normal. ABDOMEN: Normoactive bowel sounds. Soft, nontender, no guarding, no rebound tenderness, and no masses palpated. EXTREMITIES: Normal strength and range of motion, no pitting or edema. No cyanosis. NEUROLOGICAL: Moves all extremities upon command. Strength 5/5 in all extremities. PSYCH: Normal mood, normal affect. SKIN: Warm, dry. No rash, lesions, ulcerations noted. Normal skin turgor. Course - Re-evaluation Re-evalutation: 09/14/18 01:30 Patient states that he is having difficulty fully emptying his bladder. Bedside ultrasound done by myself, showed an enlarged bladder with large amounts of urine in his bladder. A urinary catheter will be placed to help drain his bladder. I also send a urinalysis to check for a urinary tract infection because his Torres catheter was in for 2 weeks. 09/14/18 02:40 Patient said he has had total relief of his bladder pain with the Torres catheter in place. He does have a large amount of leukocytes in his urine, therefore he will be given doxycycline as outpatient to treat his urinary tract infection. Patient is afebrile, stable for discharge, and has improved. Discharge instructions with close follow-up with urology were given. Patient verbalized understanding. - Vital Signs Vital signs: Temp Pulse Resp BP Pulse Ox 97.8 F 71 16 137/85 H 97 09/14/18 03:11 09/14/18 03:11 09/14/18 03:11 09/14/18 03:11 09/14/18 03:11 - Laboratory Laboratory results interpreted by me: 09/14/18 01:20 Urine Glucose (UA) 50 H Urine Nitrite POSITIVE H Ur Leukocyte Esterase LARGE H Discharge - Discharge Clinical Impression: Urinary retention Urinary tract infection Qualifiers: Urinary tract infection type: catheter-associated UTI Indwelling urinary catheter type: indwelling urethral catheter Encounter type: initial encounter Qualified Code(s): T83.511A - Infection and inflammatory reaction due to indwelling urethral catheter, initial encounter; N39.0 - Urinary tract infection , site not specified; N39.0 - Urinary tract infection, site not specified Condition: Stable Disposition: HOME, SELF-CARE Additional Instructions: You have been seen in the emergency department for bladder pain. Your bladder pain is most likely due to the urine that collected in there. You also have a urinary tract infection. Antibiotics have been ordered for you. Please take all your medication as prescribed. Even if you feel better, please continue to take the antibiotics. Please follow-up with your urologist on Sunday in regards to today's visit. Prescriptions: Doxycycline Hyclate 100 mg PO BID #14 capsule Referrals: SHYAM BRAVO JR, DO [Primary Care Provider] - Follow up as needed
[2018-09-14] MEDS ORDERED: DOXYCYCLINE HYCLATE 100 MG TABLET PO ONE (02:44)
[2018-09-14 03:12] VITALS: BP 137/85
== END 2018-09-14 03:12 | disposition home or self-care (01) ==
LOC: ER 00:15
DX: T83.511A Infection and inflammatory reaction due to indwelling urethral catheter, initial encounter (principal); N39.0 Urinary tract infection, site not specified; R33.9 Retention of urine, unspecified; X58.XXXA Exposure to other specified factors, initial encounter; I10 Essential (primary) hypertension; Z87.442 Personal history of urinary calculi
CPT/HCPCS: 99284; 51702; 81001; C1758 ×2; A9270